=== PATIENT | male | born 1980 | race Caucasian/White ===

== ENCOUNTER 2018-04-26 04:30 | Emergency (ER) | payer MEDICAID, SELFPAY ==
[2018-04-26 04:32] VITALS: BP 121/81; PULSE 73; RESP 16; TEMP 36.9; O2SAT 98; BMI 21.7
--- NOTE | 2018-04-26 04:47 | RAD_ITS ---
STUDY: X-RAY CHEST REASON FOR EXAM: Male, 38 years old cough TECHNIQUE: 2 views COMPARISON: None. FINDINGS: There is a background of COPD demonstrated by some flattening of hemidiaphragms. The findings are most impressively displayed in the lower thirds of the lungs. The possibility of alpha-1 antitrypsin deficiency cannot be excluded. The heart is normal Normal visualized thoracic spine. Normal visualized ribs, clavicles, and shoulders. There is no demonstrated abnormality of the visualized soft tissue structures of the upper abdomen. RAD/Chest PA and Lateral IMPRESSION: Emphysematous changes in both lungs especially in the lower lobes. Alpha-1 antitrypsin deficiency cannot be excluded Electronically Signed: Matteo Hinson MD at 5:30 EST Tel , Service support ,
--- NOTE | 2018-04-26 05:38 | ED.DCSUM_ITS ---
- ER Visit Summary Date of Service: 04/26/18 Chief Complaint: Cold symptoms History of Present Illness: The patient is a 38 M who presents with 2 weeks of cold symptoms. He complains of nasal congestion rhinorrhea productive cough. He complains of a mild headache. He is concerned he may have some constipation as well. No chest pain no shortness of breath no fevers or vomiting. Physical Examination: Afebrile vitals normal Moist mucous membranes Heart regular rate and rhythm Lungs are clear no rales rhonchi or wheezing Abdomen soft Oropharynx clear Test Results: Two-view chest x-ray shows emphysematous changes no acute process. Emergency Department Course and Treatment: Patient is clinically well-appearing with normal vital signs and has a normal chest x-ray. I explained to him that 2 weeks of symptoms with bronchitis is within the expected duration of the illness. He was advised on supportive care. He understands to return for new or worsening symptoms. He was discharged. Treatment Plan: [] Disposition: Discharge Impression: Bronchitis This note was generated with [employer] dictation software. It may contain incorrect words, spelling, and punctuation that were not noted in review of the chart prior to signing ED Disposition - Plan for ED Patient: Chief Complaint: Cold Sx Referrals: Allan Garcia DO [Primary Care Provider] -
[2018-04-26 05:46] VITALS: BP 122/80; PULSE 66; RESP 18; O2SAT 98
== END 2018-04-26 05:46 | disposition home or self-care (01) ==
PROVIDERS: Emergency Provider Emergency Medicine; Family Provider Student in an Organized Health Care Education/Training Program; PCP Student in an Organized Health Care Education/Training Program
DX: J40 Bronchitis, not specified as acute or chronic (principal); K59.00 Constipation, unspecified; Z72.0 Tobacco use
CPT/HCPCS: 71046; 99282

== ENCOUNTER 2020-04-29 04:19 | Emergency (ER) | payer SELFPAY ==
[2020-04-29 04:20] VITALS: BP 131/77; PULSE 95; RESP 18; TEMP 37.3; O2SAT 97; BMI 20.3
--- NOTE | 2020-04-29 04:33 | ED.VIS.GEN ---
History of Present Illness Chief Complaint: Laceration Informant: Patient Narrative: 40-year-old male with no significant past medical history presents with concern for laceration to his right foot. States that he cut it on a piece of glass on the floor. States he is not up-to-date on tetanus. Denies any sensory change. Patient does admit to using Kratom and meth this evening. Past Medical History - Allergies and Home Meds Allergies/Adverse Reactions: Allergies meperidine HCl [From Demerol] Adverse Reaction (Verified 04/26/18 04:31) Unknown Primary Care Physician: Allan Garcia DO [Primary Care Provider] - Past Medical History: None Surgical History: no surgical history Lives: With Family Smoking Status: Current every day smoker Alcohol: None Drugs: - - Meth Review of Systems General: Denies: Chills, Fever, Sweats Eyes: Denies: Visual changes - bilaterally, Diplopia ENT: Denies: Rhinorrhea, Sore throat Cardiovascular: Denies: Chest pain, Palpitations Respiratory: Denies: Dyspnea, Cough, Dyspnea on exertion Gastrointestinal: Denies: Abdominal pain, Nausea, Vomiting, Diarrhea, Melena, Hematochezia Genitourinary: Denies: Dysuria, Hematuria, Frequency Musculoskeletal: Denies: Back pain, Extremity Pain Skin: Reports: Wounds. Denies: Rash Neurological: Denies: Headache, Weakness, Numbness Physical Exam Vital Signs/Narrative: Vital Signs Temp Pulse Resp BP Pulse Ox 04/29/20 04:20 99.1 F 95 18 131/77 H 97 Inital Vital Signs reviewed: Yes General: Well nourished, Well developed, No Acute Distress Head: Normocephalic, Atraumatic Eyes: Perrl, EOMI ENT: Moist mucous membranes, No rhinorrhea Neck: Supple, Nontender Cardiovascular: Regular rate, Regular rhythm, No murmurs Respiratory: No distress, CTA bilaterally, Chest nontender Abdomen: Soft, Nontender, Nondistended, Normal bowel sounds Back: Nontender, Normal Inspection Extremities: Nontender, No edema Skin: Normal color, No rash, - - 1.5 cm linear laceration to the right medial heel Neurological: Alert, Oriented x3, Cranial nerves II-XII grossly intact, Normal Strength, Normal Sensation Psychological: Normal affect, - - Anxious Diagnostic/Tx/Re-eval Clinical Impression(s) from Imaging Studies Foot X-Ray 12/07/20 04:42 IMPRESSION: Solitary, relatively large glass foreign body at the medial right heel. The foreign body is deep in location and associated cortical bone injury of the posterior calcaneal tuberosity is not excluded. at 0512 Reported and signed by: Bolivar Collazo MD Electronically Signed: Bolivar Collazo, at 5:11 EST Tel , Service support , - Medical Decision Making Appears well and nontoxic. Patient is somewhat erratic in his movements secondary to his meth use. X-ray shows evidence of large glass foreign body. Podiatry consulted given possible involvement of the cortical calcaneus. Dr. Boothone him and the patient at the bedside. The patient was anesthetized with lidocaine with 1% epinephrine as well as bupivacaine. The glass was removed in a sterile fashion. The wound was cleansed. Culture was obtained. The wound was approximated with simple interrupted sutures. Patient will be placed on antibiotic therapy and follow-up with podiatry. Patient advised to return for increasing pain, fever, chills, drainage. Impression: 1. Right foot laceration -3-1/2 cm -repaired with four 4-0 Ethilon sutures in simple interrupted fashion 2. Right foot foreign body ED Disposition - Plan for ED Patient: Disposition: Home or Assisted Living Instructions: ED Laceration, Foot: All Closures Prescriptions: Cephalexin [Keflex] 500 mg PO Q6 #40 cap Prescription Printed Referrals: Allan Garcia DO [Primary Care Provider] - 2 Days Raven Gee DPM [STAFF PHYSICIAN] - 10-14 Days suture removal
--- NOTE | 2020-04-29 04:42 | RAD_ITS ---
Clinical statement: Patient stepped ON A PIECE OF GLASS LACERATION TO RT MEDIAL HEEL EXAMINATION/TECHNIQUE: XR right foot 3 views COMPARISON: None FINDINGS: Soft tissue laceration with a large triangle shaped glass foreign body at the medial right heel. The foreign body density measures approximately 3 x 0.7 cm. The foreign body is deep in location and abuts the posterior tuberosity of the calcaneus. Associated cortical bone break by the foreign body is difficult to determine and not excluded. Normal bony alignment. The plantar arch is maintained. Joint spaces including the subtalar joint are preserved. RAD/Foot min 3 Views IMPRESSION: Solitary, relatively large glass foreign body at the medial right heel. The foreign body is deep in location and associated cortical bone injury of the posterior calcaneal tuberosity is not excluded. at 0512 Reported and signed by: Bolivar Collazo MD Electronically Signed: Bolivar Collazo, at 5:11 EST Tel , Service support ,
[2020-04-29] MEDS: Lidocaine 1% /Epi 1:100 (20ml) 20 ML Vial 10 ML INFILT (04:44)
[2020-04-29] MEDS: Diphth,Pertuss(Acell),Tet Vac 0.5 ML Vial IM (04:44)
--- NOTE | 2020-04-29 06:21 | PCM.CONS.GEN ---
Problem List (1) Foreign body (FB) in soft tissue Status: Acute (2) Right foot pain Status: Acute Reason for Consult Date of Consultation: 04/29/20 Reason for Consultation: Glass in foot History of Present Illness: The patient is a 40 year old M presents this morning after sustaining a right foot injury in which he stepped on a sharp object. He relates he thinks he stepped on a piece of a painting and his x-rays suggest he has a piece of glass in his foot. He denies other injuries. He is very active during his examination and is unable to control his movements. He denies other foot injuries. He admits to taking drugs today. His tetanus status is not up to date. He denies numbness. He recently had a local anesthetic injection to his foot by ER physician in preparation for this foreign body removal. Past Medical History Allergies meperidine HCl [From Demerol] Adverse Reaction (Verified 04/26/18 04:31) Unknown Home Medications: Ambulatory Orders Medication Instructions Recorded Cephalexin [Keflex] 500 mg PO Q6 #40 cap 04/29/20 Surgical History: no surgical history Lives: With Family Smoking Status: Current every day smoker Tobacco Use: Cigarettes, - Alcohol: None Drugs: - - Meth Review of Systems Constitutional: Denies: Chills, Fever Cardiovascular: Denies: Claudication Gastrointestinal: Denies: Nausea, Vomiting Musculoskeletal: Reports: Foot Pain. Denies: Leg Pain Skin: Reports: Wounds Neurological: Denies: Numbness Psychiatric: Reports: Anxiety Patient Problems: Active and Suspected Problems Foreign body (FB) in soft tissue (Acute) Right foot pain (Acute) - Physical Exam Vitals/I&O's: Vital Signs Temp Pulse Resp BP Pulse Ox 99.1 F 95 18 131/77 H 97 04/29/20 04:20 04/29/20 04:20 04/29/20 04:20 04/29/20 04:20 04/29/20 04:20 Oxygen Delivery Method Room Air Weight: 69.9 kg Body Mass Index (BMI) 20.3 General: Alert, Oriented x3, Cooperative, - - Her active physically and verbally HEENT: Atraumatic Extremities: No cyanosis, Capillary Refill Less than 3 Seconds, No Calf Tenderness, Edema - Mild hindfoot, Peripheral Pulses Normal Skin: Ulcer/ Wound - ~ 3.5 centimeter laceration to the medial plantar right heel with hematogenous drainage to moderate amount. No pulsatile bleeding noted. An approximately 2.5 cm triangular-shaped glass with a width of about 1.2 cm was removed in total from the deep wound bed. No necrosis or purulence was noted Musculoskeletal: No Tenderness to Palpation of Joints or Extremities, Tenderness - Pain with injection and foreign body manipulation/removal. Compartments are soft and there is no skin tenting. Neurological: Sensory exam intact to light touch and pain Psych/Mental Status: Agitated, Anxious Assessment/Plan All Active Problems Laceration of right heel (Acute) Foreign body (FB) in soft tissue (Acute) Right foot pain (Acute) Dental caries (Acute) Foreign body right foot, glass: Removed in total Right foot pain I reviewed his case. He is afebrile and overall stable at this time. His x-rays were reviewed which demonstrated a foreign body consistent with glass material to the plantar medial foot in near if not abutting approximation to the calcaneus bone. Verbal consent was obtained to remove the foreign body. Local anesthetic was administered by emergency room physician prior to arrival. Chlorahexadine was used to clean laceration and poncho injury site. Clean instrumentation including hemostat was used to gently dissect and remove the glass in total which was seated about 1 cm deep to the laceration entry point. Aerobic and anaerobic cultures were obtained. The injury laceration site was irrigated with normal saline. Pressure was applied to achieve prompt hemostasis control. No purulence or necrosis was noted at this time. 3-0 nylon vertical mattress and horizontal mattress technique was used to reapproximate the remaining laceration in a retention manner. He appears to have poor hygiene however his foot has been cleaned prior to the procedure. A wet to dry dressing with Betadine was applied. This is secured with an Saul wrap. To keep intact. He tolerated the procedure. Tetanus update was ordered per ER physician. He will be placed on oral antibiotics of Keflex and his culture will be monitored for results. He will also be monitored clinically for development of infection. He was advised to return to clinic within 1 to 2 weeks for assessment in which sutures may be removed at that time ([facility], ). To reduce weight on the heel. To avoid soaking or hitting this area wet. Smoking and drug cessation was recommended to optimize healing. Thank you for the consultation. Foot X-Ray 04/29/20 04:42 IMPRESSION: Solitary, relatively large glass foreign body at the medial right heel. The foreign body is deep in location and associated cortical bone injury of the posterior calcaneal tuberosity is not excluded. at 0512 Reported and signed by: Bolivar Collazo MD Raven Gee DPM, [facility]
[2020-04-29 06:32] VITALS: PULSE 95; RESP 20; O2SAT 100
--- NOTE | 2020-04-29 06:33 | ED.RN ---
PT GIVEN PHONE NUMBER FOR HIS MOTHER ABRAHAM. SHE WANTS TO DRIVE HIM HOME. I ASKED PT AT DISCHARGE AND HE STATED HE HAD CALLED HER FOR A RIDE. REVIEWED CRUTCHES AND PT RETURNED DEMONSTRATION POORLY. ATTEMPTED TO RE-EDUCATE PATIENT SEVERAL TIMES BUT PT JUST WANTED TO LEAVE.
== END 2020-04-29 06:34 | disposition home or self-care (01) ==
PROVIDERS: Emergency Provider Emergency Medicine; PCP Student in an Organized Health Care Education/Training Program
DX: S91.321A Laceration with foreign body, right foot, initial encounter (principal); W25.XXXA Contact with sharp glass, initial encounter; W45.8XXA Other foreign body or object entering through skin, initial encounter; Y93.9 Activity, unspecified; Y92.9 Unspecified place or not applicable; Y99.9 Unspecified external cause status; Z23 Encounter for immunization; K02.9 Dental caries, unspecified; F17.210 Nicotine dependence, cigarettes, uncomplicated
CPT/HCPCS: 12002; 73630; 87070; 87075; 87077; 87186; 87205; 90471; 90715; 99284

== ENCOUNTER 2020-06-28 09:07 | Emergency (ER) | payer SELFPAY ==
[2020-06-28 09:08] VITALS: BP 121/70; PULSE 74; RESP 16; TEMP 36.3; O2SAT 98; BMI 21.1
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
[2020-06-28 10:45] VITALS: RESP 17
[2020-06-28 10:48] LABS: Absolute Lymphocyte Count 1.57 X10^3/uL (0.83-4.51); Absolute Neutrophil Count 3.9 X10^3/uL (2.0-7.7); Basophil# 0.03 X10^3/uL; Basophil% 0.5 % (0-1); Eosinophil# 0.07 X10^3/uL; Eosinophils% 1.2 % (0-5); Hematocrit 41.4 % (40-54); Hemoglobin 14.3 g/dL (13.0-16.5); Lymphocyte # 1.57 X10^3/ul (4.0); Lymphocyte % 26.1 % (19-41); Mean Corp Hgb Conc 34.5 g/dL (32-36); Mean Corpuscular Hgb 32.1 pg (27.0-32.0); Mean Corpuscular Volume 92.8 fL (80-94); Mean Platelet Vol. 9.7 fl (6.2-12.0); Monocyte# 0.42 X10^3/uL; NRBC Flagged by Analyzer 0 % (0-5); Neutrophil # 3.91 X10^3/uL (2.7-7.7); Neutrophil % 64.9 % (47-70); Platelet Count 269 K/mm3 (150-450); RBC Distribution Width CV 12.5 % (11.6-14.6); Red Blood Count 4.46 M/mm3 (4.6-6.2)
[2020-06-28 11:00] VITALS: BP 116/86; PULSE 61; RESP 17; O2SAT 98
[2020-06-28 11:05] LABS: ALB/GLOB Ratio 1.1 RATIO (0.9-2.4); AST(SGOT) 28 U/L (15-37); Alanine Aminotransfer ALT/SGPT 37 U/L (16-61); Albumin, Serum 3.7 g/dL (3.2-5.0); Alkaline Phosphatase 119 U/L (45-117); Anion Gap 4 (5-15); BUN 28 mg/dL (7-18); BUN/Creat Ratio 24.8 RATIO (10-20); Calcium,Total 9.1 mg/dL (8.5-10.1); Chloride 106 mmol/L (98-107); Creatinine, Serum 1.13 mg/dL (0.70-1.30); EST Glomerular Filtration Rate 76 mL/min (>60); Est Glom Filt Rate - Afr Amer 91 mL/min (>60); Estimated Creatinine Clearance 87.42 ml/min; Globulin 3.3 g/dL (2.2-4.2); Glucose 96 mg/dL (74-106); Potassium 3.9 mmol/L (3.5-5.1); Sodium Level 137 mmol/L (136-145)
[2020-06-28 11:09] LABS: Amphetamine Urine VISTA POSITIVE (<1000 ng/mL); Barbiturate Urine VISTA NEGATIVE (< 200 ng/mL); Benzodiazepine Urine VISTA NEGATIVE (< 200 ng/mL); Cocaine Urine VISTA NEGATIVE (< 300 ng/mL); Ecstacy Urine VISTA POSITIVE (< 500 ng/mL); Methadone Urine VISTA NEGATIVE (< 300 ng/mL); PCP Urine VISTA NEGATIVE (< 25 ng/mL); THC Urine VISTA NEGATIVE (< 50 ng/mL); Vista UDS pH Range 6
[2020-06-28 11:17] LABS: Alcohol, Blood (Medical)-Serum < 3.0 mg/dL
[2020-06-28 12:00] VITALS: RESP 17
[2020-06-28 13:00] VITALS: RESP 19
[2020-06-28 15:22] VITALS: RESP 17; RESP 18
== END 2020-06-28 15:22 | disposition home or self-care (01) ==
PROVIDERS: Emergency Provider Student in an Organized Health Care Education/Training Program; PCP Student in an Organized Health Care Education/Training Program
DX: F15.10 Other stimulant abuse, uncomplicated (principal); R41.82 Altered mental status, unspecified; F43.10 Post-traumatic stress disorder, unspecified; F17.200 Nicotine dependence, unspecified, uncomplicated
CPT/HCPCS: 80053; 80307; 82077; 85025; 87426; 99284

== ENCOUNTER 2020-10-14 14:04 | Emergency (ER) | payer MEDICAID, SELFPAY ==
[2020-10-14 14:05] VITALS: BP 142/91; PULSE 68; RESP 15; TEMP 36.2; O2SAT 97; BMI 21.6
--- NOTE | 2020-10-14 14:15 | EDS_ITS ---
HPI History of Present Illness Chief Complaint: Upper Extremity Injury Informant: patient Onset/Context/Timing Onset: Month(s) (Patient onset approximately 18 months ago.) Context: Gradual Onset Timing: Continuous Quality: Both hands limited flexion and prominent flexor tendons Location: Right and left hand Current Severity: Mild Maximum Severity: Mild Worsened by: Unknown Relieved by: Nothing Associated Symptoms Associated Symptoms: Vague numbness Narrative Narrative: Patient is a 40-year-old [id number] male presents with vague numbness of his entire right and left hand and difficulty making a fist. He states this causes him pain. He also points out the prominent flexor tendons right and left hand. He denies presently any paresthesia, anesthesia or motor weakness. He does not wake up in the middle night complaining of numbness or pain in distribution of his median nerve. There is no history of trauma. He is presently unemployed. 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 He denies history of diabetes. He denies history of hypothyroidism. Prior similar symptoms: No Recent Illness/Hospitalization: No PFSH PFSH no medical history Allergy/AdvReac Type Severity Reaction Status Date / Time meperidine HCl [From Demerol] AdvReac Unknown Verified 10/14/20 14:07 no surgical history Social History (Updated 10/14/20 @ 14:[address] Nain Blanc MD) household members: none current occupational exposures/hazards: No Smoking Status: Current every day smoker alcohol intake: never substance use type: does not use ROS ROS ED Constitutional Constitutional ED: Denies chills, fever(s) or subjective Gastrointestinal Gastrointestinal: Denies nausea or vomiting Musculoskeletal Musculoskeletal: Reports other Details: Strict and flexion of fingers right and left hand. ; Denies arthralgias, back pain, myalgias or neck pain Integumentary Denies abscess, Abrasions or rash Neurologic Neurologic: Denies paresthesias or weakness EXAM Physical Exam Const Vital Signs: 10/14/20 14:05 Temperature 97.1 F L Temperature Source Temporal Pulse Rate 68 Respiratory Rate 15 Blood Pressure 142/91 H Blood Pressure Mean 108 Pulse Ox 97 Oxygen Delivery Method Room Air Positive well nourished and well developed General Appearance ED: well developed and NAD HEENT Negative for trauma Eyes PERRL and EOMs intact bilaterally General Eye ED: Negative for pale conjunctiva Chest Wall inspection of chest normal Resp normal respiratory effort Cardio regular rate and regular rhythm Extremity Extremity Narrative: He has evidence of Dupuytren's contractures right and left hand. He has limited flexion of his fingers bilaterally. Median, radial and ulnar function intact. Capillary refill is normal. Sensation is normal. He had a negative Tinel's sign and Phalen sign. Radial pulses palpable. There is no gemelli of the nails. General Extremety ED: Yes tenderness Neuro oriented x3, CN's II-XII intact bilaterally and no sensory deficits noted Sensorium / Orientation: alert Motor Exam: strength 5/5 throughout Psych mental status grossly normal Skin no rashes or lesions noted MDM MDM MDM Narrative Medical decision making narrative: Patient's physical findings consistent with Dupuytren's contractures bilaterally. Will refer to Dr. Cale Haque. Discharge Plan Triage Chief Complaint: Upper Extremity Injury ED Provider: Nain Blanc Dx/Rx/DC Orders Primary Care Provider: Allan Garcia
== END 2020-10-14 14:43 | disposition home or self-care (01) ==
PROVIDERS: Emergency Provider Emergency Medicine; PCP Student in an Organized Health Care Education/Training Program
DX: S49.91XA Unspecified injury of right shoulder and upper arm, initial encounter (principal); X58.XXXA Exposure to other specified factors, initial encounter; Y93.9 Activity, unspecified; Y92.9 Unspecified place or not applicable; Y99.9 Unspecified external cause status; F17.200 Nicotine dependence, unspecified, uncomplicated; Z56.0 Unemployment, unspecified
CPT/HCPCS: 99282

== ENCOUNTER → 2020-12-10 16:40 | Outpatient (CLI) | payer MEDICAID, SELFPAY ==
[2020-12-10 15:34] VITALS: BMI 21.6
--- NOTE | 2020-12-10 17:00 | RAD_ITS ---
STUDY: X-RAY - LEFT HAND REASON FOR EXAM: Male, 40 years old. PAIN TECHNIQUE: 3 view(s) of the hand. COMPARISON: None. FINDINGS: Normal radiocarpal articulation. Normal distal radioulnar joint. Normal visualized carpal bones. Normal carpal articulations Normal carpometacarpal articulation of the thumb. Normal second through fifth carpometacarpal joints. Normal metacarpi. Normal metacarpophalangeal joint of the thumb. Normal interphalangeal joint of the thumb. Normal proximal and distal phalanges of the thumb. Normal metacarpophalangeal joints of the second through fifth fingers. Normal proximal and distal interphalangeal joints of the second through fifth fingers. Normal phalanges of the second through fifth fingers. The soft tissue structures are unremarkable. RAD/Hand Min 3 Views IMPRESSION: Normal x-ray examination of the hand. Electronically Signed: Maicol Silva MD at 10:18 EDT , Service support ,
--- NOTE | 2020-12-10 17:04 | RAD_ITS ---
STUDY: X-RAY - CERVICAL SPINE REASON FOR EXAM: Male, 40 years old. Chronic neck pain TECHNIQUE: 5 view(s) of the cervical spine were obtained including oblique views. COMPARISON: None FINDINGS: Normal anterior atlantoaxial articulation. Normal odontoid process. There is straightening of the normal cervical lordosis. Mild degree of anterior spondylosis and disc space narrowing at the C5-C6 and C6-C7 levels. Normal visualized intervertebral neuroforamina. The soft tissue structures are unremarkable. RAD/Cerv Spine 4 or 5 Views IMPRESSION: Straightening of the normal cervical lordosis with spondylosis and disc space narrowing at the C5-C6 and C6-C7 levels. Electronically Signed: Maicol Silva MD at 10:17 EDT , Service support ,
--- NOTE | 2020-12-10 17:11 | RAD_ITS ---
STUDY: X-RAY - RIGHT HAND REASON FOR EXAM: Male, 40 years old. Hand pain. TECHNIQUE: 3 view(s) of the hand. COMPARISON: 09/10/2014. FINDINGS: Normal radiocarpal articulation. Normal distal radioulnar joint. Normal visualized carpal bones. Normal carpal articulations Normal carpometacarpal articulation of the thumb. Normal second through fifth carpometacarpal joints. Normal metacarpi. Normal metacarpophalangeal joint of the thumb. Normal interphalangeal joint of the thumb. Normal proximal and distal phalanges of the thumb. Normal metacarpophalangeal joints of the second through fifth fingers. Normal proximal and distal interphalangeal joints of the second through fifth fingers. Normal phalanges of the second through fifth fingers. The soft tissue structures are unremarkable. RAD/Hand Min 3 Views IMPRESSION: No interval change. No abnormality of the right hand. Electronically Signed: Beto Tristan MD at 12:38 EDT , Service support ,
--- NOTE | 2020-12-10 17:14 | RAD_ITS ---
STUDY: X-RAY - RIGHT WRIST REASON FOR EXAM: Male, 40 years old. PAIN TECHNIQUE: 3 view(s) of the wrist were obtained. COMPARISON: None. FINDINGS: Normal visualized distal radius and ulna. Normal radiocarpal articulation. Normal distal radioulnar articulation. Normal carpal bones. Normal carpal articulations. Normal carpometacarpal articulation of the thumb. Normal second through fifth carpometacarpal articulations. Normal visualized metacarpal bones. The soft tissue structures are unremarkable. RAD/Wrist min 3 Views IMPRESSION: Normal x-ray examination of the wrist. Electronically Signed: Maicol Sliva MD at 21:30 EDT , Service support ,
--- NOTE | 2020-12-10 19:03 | RAD_ITS ---
STUDY: X-RAY - LEFT WRIST REASON FOR EXAM: Male, 40 years old. Wrist pain. TECHNIQUE: 3 view(s) of the wrist were obtained. COMPARISON: None. FINDINGS: Normal visualized distal radius and ulna. Normal radiocarpal articulation. Normal distal radioulnar articulation. Normal carpal bones. Normal carpal articulations. Normal carpometacarpal articulation of the thumb. Normal second through fifth carpometacarpal articulations. Normal visualized metacarpal bones. The soft tissue structures are unremarkable. RAD/Wrist min 3 Views IMPRESSION: No abnormality of the left wrist. Electronically Signed: Beto Tristan MD at 12:37 EDT , Service support ,
== END ==
PROVIDERS: PCP Student in an Organized Health Care Education/Training Program; Referring Provider Surgery; Visit Provider Surgery
DX: M54.2 Cervicalgia (principal); G89.29 Other chronic pain; F43.10 Post-traumatic stress disorder, unspecified; M79.641 Pain in right hand; M79.642 Pain in left hand; M72.0 Palmar fascial fibromatosis [Dupuytren]; M25.531 Pain in right wrist; M25.532 Pain in left wrist
CPT/HCPCS: 72050; 73110; 73130

== ENCOUNTER 2021-03-08 11:25 | Emergency (ER) | payer MEDICAID, SELFPAY ==
[2021-03-08 11:27] VITALS: BP 150/93; PULSE 96; RESP 18; TEMP 36.1; O2SAT 97; BMI 21.1
--- NOTE | 2021-03-08 11:55 | EDS_ITS ---
HPI History of Present Illness Chief Complaint: Eye Problem [facility] Medical History Anxiety and depression Arthritis Back problem Bilateral hand pain Bilateral wrist pain Bone fracture Chronic neck pain Drug abuse Dupuytren's disease of palm of both hands Glaucoma History of drug abuse PTSD (post-traumatic stress disorder) Smoker Stiffness of joints of both hands Ulnar neuropathy of both upper extremities Vision problem Home Medications buprenorphine-naloxone tab SUBLINGUAL 03/08/21 [History Last Taken Unknown] magnesium amino acid chelate mg PO 03/08/21 [History Last Taken Unknown] Allergy/AdvReac Type Severity Reaction Status Date / Time meperidine HCl [From Demerol] AdvReac Unknown Verified 03/08/21 11:42 Family History Other Anxiety Arthritis Surgical History History of appendectomy Social History household members: none current occupational exposures/hazards: No Smoking Status: Current every day smoker tobacco type: cigarettes second hand exposure: Yes counseling given: provider counseling alcohol intake: current details: once a year substance use type: crack/cocaine, heroin, opiates, painkillers, methamp hetamine and other additional social history: Does take aspirin as needed Does take ibuprofen as needed EXAM Physical Exam Const Vital Signs: 03/08/21 11:27 Temperature 97 F L Temperature Source Temporal Pulse Rate 96 Respiratory Rate 18 Blood Pressure 150/93 H Blood Pressure Mean 112 Pulse Ox 97 Oxygen Delivery Method Room Air MDM MDM MDM Narrative Medical decision making narrative: Upon arrival to the room, patient was nowhere to be found. He had stated to the RN that he was going to the bathroom, but had returned already. It appears that he has eloped. Discharge Plan Triage Chief Complaint: Eye Problem ED Provider: Joe Wilson Dx/Rx/DC Orders Prescriptions: No Action buprenorphine-naloxone 8-2 mg tablet, sublingual SUBLINGUAL RF: 0 magnesium amino acid chelate 100 mg tablet PO RF: 0 Primary Care Provider: Allan Garcia
== END 2021-03-08 12:10 | disposition left against medical advice (07) ==
LOC: ED 12:10
PROVIDERS: Emergency Provider Emergency Medicine; PCP Student in an Organized Health Care Education/Training Program
DX: H57.10 Ocular pain, unspecified eye (principal); Z53.21 Procedure and treatment not carried out due to patient leaving prior to being seen by health care provider

== ENCOUNTER 2021-03-08 14:51 | Emergency (ER) | payer MEDICAID, SELFPAY ==
[2021-03-08 14:52] VITALS: BP 122/88; PULSE 75; RESP 18; TEMP 36.1; O2SAT 95; BMI 21.1
--- NOTE | 2021-03-08 15:15 | ED.RN ---
PT LEFT FOR A SECOND TIME WITHOUT BEING SEEN.
== END 2021-03-08 15:13 | disposition left against medical advice (07) ==
LOC: ED 15:18
PROVIDERS: PCP Student in an Organized Health Care Education/Training Program
DX: H57.10 Ocular pain, unspecified eye (principal); Z53.21 Procedure and treatment not carried out due to patient leaving prior to being seen by health care provider

== ENCOUNTER 2021-03-08 20:06 | Emergency (ER) | payer MEDICAID, SELFPAY ==
--- NOTE | 2021-03-08 20:11 | ED.RN ---
PT DECIDED NOT TO CONTINUE TRIAGE PROCESS.
[2021-03-08 20:25] VITALS: BP 116/70; PULSE 76; RESP 16; TEMP 36.2; O2SAT 100; BMI 20.7
--- NOTE | 2021-03-08 20:29 | ED.RN ---
PT RETURNS TO ED WITH FAMILY MEMBER WANTING TO BE SEEN.
--- NOTE | 2021-03-08 21:26 | EX.ED.DYSGE1 ---
HPI History of Present Illness Chief Complaint: General Illness Informant: patient Narrative Narrative: 40-year-old male presenting for jerking. Patient states he intermittently has jerking of his bilateral upper extremities. He states that he sometimes wakes up with jerking. He denies numbness or weakness. Denies fever. He admits to using street drugs. He states he recently started Suboxone. He states he uses methamphetamine occasionally. Denies other complaints. Prior similar symptoms: Yes Recent Illness/Hospitalization: No PFSH PFSH Medical History Anxiety and depression Arthritis Back problem Bilateral hand pain Bilateral wrist pain Bone fracture Chronic neck pain Drug abuse Dupuytren's disease of palm of both hands Glaucoma History of drug abuse PTSD (post-traumatic stress disorder) Smoker Stiffness of joints of both hands Ulnar neuropathy of both upper extremities Vision problem Home Medications buprenorphine-naloxone tab SUBLINGUAL 03/08/21 [History Last Taken Unknown] magnesium amino acid chelate mg PO 03/08/21 [History Last Taken Unknown] Allergy/AdvReac Type Severity Reaction Status Date / Time meperidine HCl [From Demerol] AdvReac Unknown Verified 03/08/21 14:53 Family History Other Anxiety Arthritis Surgical History History of appendectomy Social History household members: none current occupational exposures/hazards: No Smoking Status: Current every day smoker tobacco type: cigarettes second hand exposure: Yes counseling given: provider counseling alcohol intake: current details: once a year substance use type: crack/cocaine, heroin, opiates, painkillers, methamphetamine and other additional social history: Does take aspirin as needed Does take ibuprofen as needed ROS ROS ED Constitutional Constitutional ED: Denies fever(s) Eyes Eyes: Denies change in vision ENT ENT ED: Denies rhinorrhea or sore throat Cardiovascular Cardiovascular: Denies chest pain or palpitations Respiratory/Chest Respiratory/Chest: Denies cough or dyspnea Gastrointestinal Gastrointestinal: Denies abdominal pain, diarrhea, nausea or vomiting Genitourinary Genitourinary ED: Denies dysuria Musculoskeletal Musculoskeletal: Denies myalgias Integumentary Denies rash Neurologic Neurologic: Denies headache(s) Psychiatric Psychiatric: Denies suicidal thoughts EXAM Physical Exam Const Vital Signs: 03/08/21 20:25 Temperature 97.1 F L Temperature Source Temporal Pulse Rate 76 Respiratory Rate 16 Blood Pressure 116/70 Blood Pressure Mean 85 Pulse Ox 100 Oxygen Delivery Method Room Air Positive well nourished and well developed General Appearance ED: well developed HEENT Reports normocephalic and head/scalp atraumatic Eyes PERRL and EOMs intact bilaterally Neck supple General: Negative for tenderness Chest Wall inspection of chest normal Resp normal respiratory effort and clear to auscultation bilaterally Cardio regular rate and regular rhythm GI non-tender and non-distended Palpation: soft; Negative for guarding or rebound tenderness present no CVA tenderness Extremity normal to inspection Neuro oriented x3 Sensorium / Orientation: alert Psych mental status grossly normal MDM MDM MDM Narrative Medical decision making narrative: Patient is advised to discontinue use of illegal substances. He will continue with his Suboxone treatment. Advised return to ED for worsening complaints. Discharge Plan Triage Chief Complaint: General Illness ED Provider: Laura Wiley Dx/Rx/DC Orders Clinical Impression: Polysubstance abuse Instructions: ED Muscle Spasm Prescriptions: No Action buprenorphine-naloxone 8-2 mg tablet, sublingual SUBLINGUAL RF: 0 magnesium amino acid chelate 100 mg tablet PO RF: 0 Primary Care Provider: Allan Garcia Referrals: Allan Garcia DO [Primary Care Provider] - Disposition Disposition: Home, Self Care
[2021-03-08 21:37] VITALS: RESP 18
== END 2021-03-08 21:40 | disposition home or self-care (01) ==
PROVIDERS: Emergency Provider Emergency Medicine; PCP Student in an Organized Health Care Education/Training Program
DX: F19.10 Other psychoactive substance abuse, uncomplicated (principal); M72.0 Palmar fascial fibromatosis [Dupuytren]; M19.90 Unspecified osteoarthritis, unspecified site; M54.2 Cervicalgia; G89.29 Other chronic pain; F17.210 Nicotine dependence, cigarettes, uncomplicated
CPT/HCPCS: 99282

== ENCOUNTER → 2021-04-23 11:07 | Outpatient (CLI) | payer MEDICAID, SELFPAY ==
[2020-12-10 15:34] VITALS: BMI 21.6
--- NOTE | 2021-04-23 13:13 | NEURO_ITS ---
NCS and/or EMG Patient Report Ordering Doctor: Cale Haque DATE OF SERVICE: 04/23/21 Kaz Garcia presents for Electrodiagnostic testing. He reports numbness and tingling in the hands, but is opting to only have the right upper extremity tested. Electrodiagnostic findings: Right median motor nerve demonstrates normal distal latency, amplitude and conduction velocity. Right ulnar motor responses within normal limits, including conduction across the elbow. Normal median ulnar F- wave. Sensory responses were within normal limits. On needle EMG, all muscles tested in the right upper limb showed no evidence of denervation with normal motor unit action potentials. Electrodiagnostic assessment: This is a normal electrodiagnostic study of the right upper limb. There is no electrodiagnostic evidence for peripheral neuropathy, including carpal tunnel or cubital tunnel syndrome.
== END ==
PROVIDERS: PCP Student in an Organized Health Care Education/Training Program; Referring Provider Surgery; Visit Provider Surgery
DX: G56.23 Lesion of ulnar nerve, bilateral upper limbs (principal)
CPT/HCPCS: 95886; 95910

== ENCOUNTER 2024-02-17 18:14 | Outpatient (REF) | payer SELFPAY ==
[2024-02-17 18:15] VITALS: BP 148/79; PULSE 76; RESP 15; TEMP 36.7; O2SAT 98; BMI 22.8
--- NOTE | 2024-02-17 19:14 | CT_ITS ---
EXAM: CT HEAD WITHOUT INTRAVENOUS CONTRAST CLINICAL INDICATION: injury TECHNIQUE: Multiple axial images were obtained of the head without intravenous contrast. This CT exam was performed using one or more of the following dose reduction techniques: automated exposure control, adjustment of the mA and/or kV according to patient size, and/or use of iterative reconstruction technique. RADIATION DOSE: CTDIvol = 47.06 mGy, DLP = 978.55 mGy-cm. COMPARISON: No relevant prior studies available. FINDINGS: BRAIN AND EXTRA-AXIAL SPACES: Unremarkable. No intra- or extra-axial hemorrhage. No evidence of acute infarct. No intracranial mass or mass effect. There is preservation of the sweet/white matter interface. Posterior fossa structures are unremarkable. Ventricles are appropriate for age. No hydrocephalus. Basal cisterns are patent. BONES/JOINTS: Unremarkable. No discrete lytic or blastic abnormalities. SINUSES: Small mucous retention cysts in the left maxillary sinus.. MASTOID AIR CELLS: Unremarkable. Clear. ORBITS: Visualized globes, extraocular muscles, optic nerves and retrobulbar fat appear unremarkable. CT/Brain/Head without Contrast IMPRESSION: No acute findings in the head/brain. Electronically Signed: Marcela House MD at 20:17 EDT ,
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
[2024-02-17] MEDS: Acetaminophen 500 MG Tablet 1000 MG PO (20:38)
[2024-02-17 20:39] VITALS: BP 140/98; PULSE 74; RESP 16; TEMP 36.6; O2SAT 99
== END 2024-02-17 20:40 ==
LOC: ED 18:14
PROVIDERS: PCP Student in an Organized Health Care Education/Training Program; Referring Provider Emergency Medicine; Visit Provider Emergency Medicine
DX: S09.90XA Unspecified injury of head, initial encounter (principal); V49.59XA Passenger injured in collision with other motor vehicles in traffic accident, initial encounter; F17.210 Nicotine dependence, cigarettes, uncomplicated
CPT/HCPCS: 70450